=== PATIENT | male | born 1985 ===

== ENCOUNTER → 2023-04-13 09:51 | Outpatient (BNVA) | payer OTHER, SELFPAY | PROVIDERS: PCP Nurse Practitioner Family; Visit Provider Physician Assistant Surgical ==

== ENCOUNTER 2023-04-19 09:26 | Outpatient (AMB) | payer OTHER, SELFPAY ==
--- NOTE | 2023-04-19 09:29 | A.OFFVIS_ITS ---
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 His goal is wants to have more energy. He reports first being concerned about his weight many years. Tried SWL at [facility] 15 years ago - but stopped. His highest weight was 260 lbs. He has tried multiple methods of weight loss including other diets. without permanent results. He lives with his and his daughter. He is unemployed now. He wakes at: 8am bed at 8pm - on his phone until 10 - 11pm. 80 ounces of water per day Breakfast: 9am - 1 egg, 1 piece of toast with avocado and banana or apple or kiwi. water Lunch: 12:30 pm - skips 1-2 d/week. fast food 3d/week. tuna sandwich with tomatoes, fruit or baby carrots. water Dinner: 5pm - meat, rice and vegetable. After dinner: multiple snacks after dinner. 7pm - sweet pastries. Bowl of cereal or chips at 8:30 if awake or apple with PB or whipped cream and chocolate chips Other snacks: none Liquids: ocassional soda, no fruit juice or caffeine Alcohol intake: none, tobacco: none, marijuana: none Exercise: none, has treadmill and weights at home. JOSE:3 ESS:2 GERD: 0: QOL:66 PFSH Surgical History Hx of hysterectomy, total Hx of total mastectomy Family History Mother Hypertension Diabetes Depression Anxiety Social History (Updated 04/13/23 @ 10:04 by Dot Oro [facility]) Alcohol intake: never Patient Tobacco Use Status: Never used Tobacco Assessment & Plan Assessment & Plan (1) Obesity: Code(s): E66.9 - Obesity, unspecified Plan: This is a 37 yo transman with obesity who will start [facility] program. Blood work has been ordered. He will start SWL classes and watch all classes before his appt with Noemi. 1. Adequate sleep of 7-8 hours per night discussed 11 pm - 8am 2. Healthy meal plan - stop skipping meals All meals/MR's need to take 20 minutes to complete 9 - 10 am - protein shake with water or UAM 1 pm - 4oz protein, 8 oz vegetable and 1 fruit 5 pm- 6 oz lean protein, 8 oz vegetable, 1/2 cup carbs 7-8 pm - protien bar Exercise - Cardio 4 d week =goal 2,000 markie/wek. treadmill at speed 3.0, incline 2- 6 (3 minutes) - to burn 350 calories (10 markie/minute) Then start ST -3 d/ wk Pt will purchase body composition analyzer (recommended list given to patient) and weight herself weekly. Next appt with Noemi in 4 weeks. Text me with any questions and weekly weights. Patient is morbidly obese and is not considered stable at this time.?I spent a total of 60 minutes reviewing/updating records, examining the patient and counseling the patient on weight management as detailed above. (2) Hypothyroid: Code(s): E03.9 - Hypothyroidism, unspecified Plan see above Orders: Orders Complete Blood Count Auto Diff Today E03.9 - Hypothyroidism, unspecified, E66.9 - Obesity, unspecified Lipid Panel Today E03.9 - Hypothyroidism, unspecified, E66.9 - Obesity, unspecified IRON PROFILE Today E03.9 - Hypothyroidism, unspecified, E66.9 - Obesity, unspecified Comprehensive Met. Panel Today E03.9 - Hypothyroidism, unspecified, E66.9 - Obesity, unspecified C Reactive Protein Today E03.9 - Hypothyroidism, unspecified, E66.9 - Obesity, unspecified Vitamin B1 Today E03.9 - Hypothyroidism, unspecified, E66.9 - Obesity, unspecified Ferritin Today E03.9 - Hypothyroidism, unspecified, E66.9 - Obesity, unspecified Vitamin D 25-OH Total Today E03.9 - Hypothyroidism, unspecified, E66.9 - Obe sity, unspecified Insulin Today E03.9 - Hypothyroidism, unspecified, E66.9 - Obesity, unspecified Hemoglobin A1c Today E03.9 - Hypothyroidism, unspecified, E66.9 - Obesity, unspecified Vitamin B12 and Folate Today E03.9 - Hypothyroidism, unspecified, E66.9 - Obesity, unspecified Zinc Today E03.9 - Hypothyroidism, unspecified, E66.9 - Obesity, unspecified Vitamin A Today E03.9 - Hypothyroidism, unspecified, E66.9 - Obesity, unspecified TSH reflex Free T4 Today E03.9 - Hypothyroidism, unspecified, E66.9 - Obesity, unspecified Coding Level of Care Code New Pt Level 5 (33269) Diagnoses Obesity E66.9 Hypothyroid E03.9
[2023-04-19 09:34] VITALS: BP 121/67; PULSE 96; TEMP 36.1; O2SAT 100; BMI 36.4
== END 2023-04-19 10:15 | disposition home or self-care (01) ==
PROVIDERS: PCP Nurse Practitioner Family; Visit Provider Physician Assistant
DX: E66.9 Obesity, unspecified (principal); Z68.36 Body mass index [BMI] 36.0-36.9, adult; E03.9 Hypothyroidism, unspecified
CPT/HCPCS: 99205

== ENCOUNTER → 2023-04-19 09:26 | Outpatient (BNVA) | payer OTHER, SELFPAY | PROVIDERS: PCP Nurse Practitioner Family; Visit Provider Physician Assistant | DX: E66.9 Obesity, unspecified (principal); E03.9 Hypothyroidism, unspecified; Z68.36 Body mass index [BMI] 36.0-36.9, adult | CPT/HCPCS: 99202 ==

== ENCOUNTER 2023-04-20 09:16 | Outpatient (REF) | payer OTHER, SELFPAY ==
[2023-04-20 09:40] LABS: MANUAL DIFF FLAG NO
[2023-04-20 10:43] LABS: Basophils Percent Auto 0.5 % (0-2); Eosinophils Absolute Auto 0.1 X10*3/uL (0.0-0.4); Eosinophils Percent Auto 1.7 % (0-4); Hematocrit 47.5 % (42.0-52.0); Hemoglobin 16.6 g/dl (14.0-18.0); Imm Gran Abs Auto 0.02 X10*3/uL (0.00-0.03); Imm Gran Pct Auto 0.3 % (0.0-0.4); Mean Corpuscular HGB Conc 34.9 g/dl (31.0-36.0); Mean Corpuscular Hemoglobin 29.7 pg (27.0-33.0); Mean Corpuscular Volume 85.1 fL (80.0-98.0); Mean Platelet Volume 10.5 fL (9.4-12.4); Monocytes Absolute Auto 0.5 X10*3/uL (0.1-1.2); Monocytes Percent Auto 8.1 % (2-11); Neutrophils Absolute Auto 3.2 x10*3/uL (2.0-8.3); Neutrophils Percent Auto 55.4 % (45-73); Platelet Count 226 X10*3/uL (160-400); Red Blood Count 5.58 X10*6/uL (4.60-5.80); Red Cell Distribution Width 12.6 % (11.0-16.0); White Blood Count 5.8 X10*3/uL (4.8-10.8)
[2023-04-20 11:20] LABS: Estimated Average Glucose 105 mg/dL; Hemoglobin A1c % 5.3 % (<6.0)
[2023-04-20 11:21] LABS: Alanine Aminotransferase 28 U/L (0-40); Albumin Level 4.5 g/dL (3.5-5.0); Alkaline Phosphatase 38 U/L (39-117); Anion Gap 14 (12-20); Aspartate Amino Transferase 19 U/L (5-37); Bilirubin Total 0.7 mg/dL (0.0-1.0); Blood Urea Nitrogen 14 mg/dL (9-16); C Reactive Protein 0.12 mg/dL (< or = 0.50); Calcium 9.8 mg/dL (8.4-10.2); Carbon Dioxide 26 mmol/L (22-29); Chloride 104 mmol/L (96-108); Cholesterol 167 mg/dL (<200); Estimated Glomerular Filt Rate > 60; Glucose Random 98 mg/dL (60-115); HDL Cholesterol 35 mg/dL (>40); Iron 103 mcg/dL (45-160); LDL Cholesterol Calculated 101 mg/dL (<100); Percent Iron Saturation 33 % (15-50); Potassium 4.2 mmol/L (3.3-5.1); Sodium 140 mmol/L (135-145); Total Iron Binding Capacity 314 mcg/dL (228-428); Total Protein 7.9 g/dL (6.5-8.0); Triglycerides 157 mg/dL (<150); Unsaturated Iron Binding 211 ug/dL
[2023-04-20 11:39] LABS: Ferritin 62 ng/mL (20-250); Insulin 11 uU/mL (2-29); TSH reflex Free T4 0.46 uIU/mL (0.32-4.0); Vitamin D 25-OH Total 26.7 ng/mL (>30)
[2023-04-20 11:45] LABS: Folate 9.2 ng/mL (> or = 4.0); Vitamin B12 190 pg/mL (200-900)
[2023-04-24 01:18] LABS: Zinc 83 mcg/dL (60-130)
[2023-04-25 09:38] LABS: Vitamin A 67 mcg/dL (38-98)
[2023-04-26 14:43] LABS: Vitamin B1 10 nmol/L (8-30)
== END 2023-04-20 09:17 | disposition home or self-care (01) ==
LOC: HO.LAB 09:16
PROVIDERS: Visit Provider Physician Assistant
DX: E66.9 Obesity, unspecified (principal); E03.9 Hypothyroidism, unspecified
CPT/HCPCS: 36415; 80053; 80061; 82306; 82607; 82728; 82746; 83036; 83525; 83540; 84425; 84443; 84590; 84630; 85025; 86140

== ENCOUNTER 2023-05-17 09:48 | Outpatient (AMB) | payer OTHER, SELFPAY ==
--- NOTE | 2023-05-17 09:56 | MHC.AMNUTRGE ---
Intake VS Expanded 05/17/23 10:33 Height 5 ft 3.5 in Weight 208 lb BMI 36.3 Intake Visit Reasons: (OV) Initial Nutrition [facility] Sagger Soak Required: No Allergies No Known Allergies Allergy (Verified 04/19/23 09:36) HPI Nutrition Presentation Details [facility] - Starting weight 208 pt states no weight loss, he understands why and knows downfalls. Reason for consult elevated BMI Diet Assmnt Details shake Ensure max in the AM - likes lunch 4oz protein, 8oz veg - has a food scale dinner 6oz protein, veg protein bar - skips because dislikes the bars Reports issues now are going out to eat more lately such as [employer], [employer]. Is seeking ideas for variety. interested in cutting back on meat intake, while maintaining high protein. Likes to have a routine . feels he doesn't know what to eat, they told me what not to eat but needs guidance understanding whys and to to have more variety Dietary counseling reduction Who buys your food self and spouse Who prepares/cooks your food self and spouse Meal frequency regular: lunch and never: breakfast Lifestyle Eating out 1-3 times/week Diagnosis Nutrition problem #1 overweight/obesity As related to (etiology) #1 excess energy intake and physical inactivity As evidenced by (sign/symptom) #1 high BMI Monitoring/Goals Nutrition problem monitoring total energy intake, level of knowledge/skill, total PRO intake, total CHO intake and weight Outcome progress progressing Learning/Education Readiness to learn excellent Stages of change action Educational materials provided Yes Most Recent Diabetes Results: Cholesterol 167 mg/dL (<200) 04/20/23 HDL Cholesterol 35 mg/dL (>40) L 04/20/23 Triglycerides 157 mg/dL (<150) H 04/20/23 Creatinine 0.98 mg/dL (0.5-1.4) 04/20/23 Blood Urea Nitrogen 14 mg/dL (9-16) 04/20/23 Sodium 140 mmol/L (135-145) 04/20/23 Potassium 4.2 mmol/L (3.3-5.1) 04/20/23 Chloride 104 mmol/L (96-108) 04/20/23 Carbon Dioxide 26 mmol/L (22-29) 04/20/23 Calcium 9.8 mg/dL (8.4-10.2) 04/20/23 AST 19 U/L (5-37) 04/20/23 ALT 28 U/L (0-40) 04/20/23 Total Protein 7.9 g/dL (6.5-8.0) 04/20/23 Albumin 4.5 g/dL (3.5-5.0) 04/20/23 PFSH Surgical History Hx of hysterectomy, total Hx of total mastectomy Family History Mother Hypertension Diabetes Depression Anxiety Social History (Updated 04/13/23 @ 10:[address] [facility]) Alcohol intake: never Patient Tobacco Use Status: Never used Tobacco Assessment & Plan Assessment & Plan (1) Obesity (BMI 30-39.9): Code(s): E66.9 - Obesity, unspecified Plan see below Patient Instructions: Recommended food themes for the week to increase variety but also maintain the regimen he enjoys (ex cymraes salad one week, southwest salad another week). Talked about how to meet protein goals with meatless meals. Gave recommendations for high fiber breads, and educated on balancing plate/meals/snacks with fiber from plants plus protein and carbs. Will f/u with PA in 1 month Coding Level of Care Code Nutr Indiv Intake (58920) Diagnoses Obesity (BMI 30-39.9) E66.9 Time Spent (min) 45
[2023-05-17 10:33] VITALS: BMI 36.3
== END 2023-05-17 10:53 | disposition home or self-care (01) ==
PROVIDERS: PCP Nurse Practitioner Family; Visit Provider Dietitian, Registered
DX: E66.9 Obesity, unspecified (principal)

== ENCOUNTER → 2023-05-17 09:48 | Outpatient (BNVA) | payer OTHER, SELFPAY | PROVIDERS: PCP Nurse Practitioner Family; Visit Provider Dietitian, Registered | DX: E66.9 Obesity, unspecified (principal); Z68.36 Body mass index [BMI] 36.0-36.9, adult; Z71.3 Dietary counseling and surveillance | CPT/HCPCS: 97802 ==

== ENCOUNTER 2023-06-05 14:38 | Outpatient (AMB) | payer OTHER, SELFPAY ==
--- NOTE | 2023-06-05 14:43 | MHC.OFFVIS ---
Intake Vital Signs 06/05/23 14:45 Height 5 ft 3.5 in Weight 211 lb 3.245 oz BMI 36.8 BP 122/74 Blood Pressure Location Rt brachial Position Sitting Pulse 98 Pulse Source Pulse Oximeter Pulse Oximetry (%) 98 Oxygen Delivery Method Room Air Intake Visit Reasons: + JASMIN Intake Note: New pt presents today for +JASMIN consult, referred by pcp Noemy Levy. C/o back pain for many years; states he is always in pain. Since November neck pain, eye pain, constant headache.Went to [facility] ED was told had MONO At the hospital he received Tramadol and steroid; reports eye pain has subsided, but still feels pressure. Saw eye doctor done testing has not heard results. Recently started on duloxetine 20mg 5 days ago. 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 States that he has always been in generalized pain. States that he has history of kidney stones and he had ureteric stents placed in the past. Since then he has been having left-sided pain. The pain is in the left upper back, left flank and left lower extremity. More recently the pain in his neck and headaches has been more severe. He went to the emergency room and was told that he had infectious mononucleosis and was prescribed steroids with some improvement. He denies any rashes. He has lost weight through bariatric surgery but has not had any unintentional weight loss. Denies any fevers. Denies any skin rashes. Denies any history of DVT/PE. He is unaware of any family history of an autoimmune rheumatic disease. Denies any froth in the urine. Denies any mouth sores. Recently started on duloxetine 20 mg daily 5 days ago by his psychiatrist [facility] Surgical History Hx of hysterectomy, total Hx of total mastectomy Family History Mother Hypertension Diabetes Depression Anxiety Social History Alcohol intake: never Patient Tobacco Use Status: Never used Tobacco Current occupational status: unemployed Review of Systems Const Reports fatigue and Denies fever(s) Eyes Reports dry eyes, Reports itchy eyes and Reports eye pain ENT Reports dysphagia, Reports dry mouth, Reports neck pain and Reports tinnitus GI Reports dysphagia Musc Reports back pain, Reports arthralgias and Reports neck pain Psych Reports anxiety Endo Reports fatigue Aller/Immun Reports itchy eyes Physical Exam Vital Signs: Last Vital Signs Pulse 98 06/05/23 14:45 BP 122/74 06/05/23 14:45 Pulse Ox 98 06/05/23 14:45 Oxygen Delivery Method Room Air 06/05/23 14:45 BMI result Body Mass Index 36.8 Const General: cooperative, healthy appearing and comfortable Nutritional Appearance: obese morbidly obese Orientation/consciousness: patient oriented x3 Limitations: no limitations HEENT Head: Yes normocephalic and Yes atraumatic Mouth: moist mucous membranes Resp Effort & Inspection: normal respiratory effort and able to speak in complete sentences Auscultation: clear to auscultation bilaterally Cardio Rate: regular rate Rhythm: regular rhythm Skin General skin exam: no rashes or lesions noted Neuro General: patient oriented x3 Extrem Other: No active synovitis Assessment & Plan Assessment & Plan (1) Positive JASMIN (antinuclear antibody): Code(s): R76.8 - Other specified abnormal immunological findings in serum Plan: This is a 37-year-old male who presents for evaluation of positive JASMIN. I do not see any signs suggestive of an autoimmune rheumatic disease. Significance of his positive JASMIN is unclear. Discussed symptoms and signs that are suggestive of an autoimmune rheumatic disease. Patient to follow-up as needed. Was recently started on duloxetine by his psychiatrist. Consider neurology evaluation if headaches do not improve. Plan I spent 25 minutes reviewing patient's chart, evaluating patient, counseling patient and documenting in the chart Coding Level of Care Code New Pt Level 3 (06105) Diagnoses Positive JASMIN (antinuclear antibody) R76.8
[2023-06-05 14:45] VITALS: BP 122/74; PULSE 98; O2SAT 98; BMI 36.8
== END 2023-06-05 15:27 | disposition home or self-care (01) ==
PROVIDERS: PCP Nurse Practitioner Family; Visit Provider Student in an Organized Health Care Education/Training Program
DX: R76.8 Other specified abnormal immunological findings in serum (principal)
CPT/HCPCS: 99203

== ENCOUNTER → 2023-06-05 14:38 | Outpatient (BNVA) | payer OTHER, SELFPAY | PROVIDERS: PCP Nurse Practitioner Family; Visit Provider Student in an Organized Health Care Education/Training Program | DX: R76.8 Other specified abnormal immunological findings in serum (principal) | CPT/HCPCS: 99202 ==

== ENCOUNTER 2023-06-18 11:05 | Outpatient (AMB) | payer OTHER, SELFPAY ==
--- NOTE | 2023-06-18 11:06 | A.OFFVIS_ITS ---
VS Expanded 06/18/23 11:17 BP 134/79 Blood Pressure Location Rt brachial Blood Pressure Position Sitting Pulse 88 Pulse Source Pulse Oximeter Temp 97.5 F Temperature Source Tympanic Pulse Oximetry 95 Oxygen Delivery Method Room Air Height 5 ft 3.5 in Weight 206 lb 3.2 oz BMI 35.9 Body Fat % 31.2 Body Fat Mass 64.4 Fat Free Mass 141.8 Visceral Fat Rating 15.0 Body Water % 51.4 Body Water Mass 106.0 Muscle Mass/Score 134.8 Basal Metabolic Rate/Score 1,921 Intake Visit Reasons: (OV) F/U [facility] (Transfer Neha) Allergies No Known Allergies Allergy (Verified 06/18/23 11:19) HPI Comments Details: Patient is a pleasant 37-year-old male who returns to the office today in follow-up. He was 1st seen in our medical weight loss clinic on 04/19/2023 by my colleague, Neha, at that time, his weight was 208.6 lb with a BMI of 36.4. Weight today is 206.2 lb with a BMI of 36. This corresponds to a 2.4 lb weight loss. He states that since his last visit, his treadmill stopped working and he has not been able to use it as much. Meal plan: 9 am Ensure RTD shake 30 gm noon meal 4 oz protein, 8 oz veg, fruit 5pm meal 6 oz protein, 1/2 c carbs, 8 oz veg 730 pm supposed to have fruit but would have bowel of cheerios, fruity javier w 2 % milk Drinking 80 oz water Exercise: walk outside not tracking calories. PFSH Surgical History Hx of hysterectomy, total Hx of total mastectomy Family History Mother Hypertension Diabetes Depression Anxiety Social History Alcohol intake: never Patient Tobacco Use Status: Never used Tobacco Current occupational status: unemployed Physical Exam Vital Signs: Last Vital Signs Temp 97.5 F 06/18/23 11:17 Pulse 88 06/18/23 11:17 BP 134/79 06/18/23 11:17 Pulse Ox 95 06/18/23 11:17 Oxygen Delivery Method Room Air 04/29/24 11:17 BMI result Body Mass Index 35.9 Assessment & Plan Assessment & Plan (1) Obesity: Code(s): E66.9 - Obesity, unspecified Category: Medical Plan: Change meal plan: 9-11 am 1/2 ensure max w 6 oz almond milk 12-2 another shake 3 pm fruit 5pm meal 8 forks protein and 8 forks veg 7 pm protein bar Given discount paperwork for [employer]. Encouraged to join there or [employer]. Encouraged to track calories with [employer] if he is walking outside. Goal is burning 300 calories per day or 2000 calories per week. Return to clinic 1 month.
[2023-06-18 11:17] VITALS: BP 134/79; PULSE 88; TEMP 36.4; O2SAT 95; BMI 35.9
== END 2023-06-18 11:57 | disposition home or self-care (01) ==
PROVIDERS: PCP Nurse Practitioner Family; Visit Provider Physician Assistant Surgical
DX: E66.9 Obesity, unspecified (principal); Z68.35 Body mass index [BMI] 35.0-35.9, adult
CPT/HCPCS: 99213

== ENCOUNTER → 2023-06-18 11:05 | Outpatient (BNVA) | payer OTHER, SELFPAY | PROVIDERS: PCP Nurse Practitioner Family; Visit Provider Physician Assistant Surgical | DX: E66.9 Obesity, unspecified (principal); Z68.35 Body mass index [BMI] 35.0-35.9, adult | CPT/HCPCS: 99212 ==

== ENCOUNTER 2023-08-31 09:50 | Outpatient (AMB) | payer OTHER, SELFPAY ==
--- NOTE | 2023-08-31 09:41 | A.OFFVIS_ITS ---
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 He was 1st seen in our medical weight loss clinic on 04/19/2023 by my colleague, Neha, at that time, his weight was 208.6 lb with a BMI of 36.4. Weight today is 209.4 lb with a BMI of 36. This corresponds to a 0.8 lb weight gain. He states that since his last visit, his treadmill stopped working and he has not been able to use it as much. He c/o pain in side and looking into spleen given recent mono dx. Stopped meal plan on own and started eating more hot dogs and hamburgers. Meal plan: 9-11 am 1/2 ensure max w 6 oz almond milk 12-2 another shake 3 pm fruit 5pm meal 8 forks protein and 8 forks veg 7 pm protein bar Drinking 80 oz water Exercise: walk outside not tracking calories. PFSH Surgical History Hx of hysterectomy, total Hx of total mastectomy Family History Mother Hypertension Diabetes Depression Anxiety Social History Alcohol intake: never Patient Tobacco Use Status: Never used Tobacco Current occupational status: unemployed Telehealth Telehealth Telehealth Platform: Telephone Location of provider rendering services: practice address Location of patient: address on file Patient Identification confirmed using: Name, : Yes Telehealth method: voice only Patient verbally consented to treatment: Yes Patient verbally consented to billing insurance company: Yes Patient informed of any privacy concerns related to visit: Yes Minutes spent on Phone/Video with Pt.: 12 Assessment & Plan Assessment & Plan (1) Obesity: Code(s): E66.9 - Obesity, unspecified Category: Medical Plan: Patient has had difficulty maintaining the meal plan. He has had multiple di etary indiscretions and subsequent abdominal discomfort. He is pursuing whether there is any intolerance with GI. Additionally being tested for any stone and this is being done through urology. While he has not lost significant amount of weight, he has learned many things about proper and balanced meals and diet. Encouraged to join the [employer] and increase exercise, counting calories as we have discussed many times. He certainly may return to the office in the future if he wishes.
[2023-08-31 09:43] VITALS: BMI 36.5
== END 2023-08-31 09:55 | disposition home or self-care (01) ==
LOC: HO.HBS 09:50
PROVIDERS: PCP Nurse Practitioner Family; Visit Provider Physician Assistant Surgical
DX: E66.9 Obesity, unspecified (principal); Z68.36 Body mass index [BMI] 36.0-36.9, adult
CPT/HCPCS: 99213

== ENCOUNTER → 2023-08-31 09:50 | Outpatient (BNVA) | payer OTHER, SELFPAY | PROVIDERS: PCP Nurse Practitioner Family; Visit Provider Physician Assistant Surgical ==

== ENCOUNTER 2025-01-23 09:10 | Outpatient (AMB) | payer OTHER, SELFPAY ==
--- NOTE | 2025-01-23 09:21 | A.OFFVIS_ITS ---
Vital Signs 01/23/25 09:32 Height 5 ft 3.5 in Weight 229 lb 4.492 oz BMI 40.0 BP 132/74 Blood Pressure Location Lt brachial Position Sitting Pulse 91 Pulse Source Pulse Oximeter Pulse Oximetry (%) 98 Oxygen Delivery Method Room Air Intake Visit Reasons: JASMIN+ Intake Note: Patient presents today for JASMIN+ follow up. Patient c/o of constant joint pain all over. 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 Hightower - New patient visit for the evaluation of a positive JASMIN - States that he has always been in generalized pain. States that he has history of kidney stones and he had ureteric stents placed in the past. Since then he has been having left-sided pain. The pain is in the left upper back, left flank and left lower extremity. More recently the pain in his neck and headaches has been more severe. He went to the emergency room and was told that he had infectious mononucleosis and was prescribed steroids with some improvement. He denies any rashes. He has lost weight through bariatric surgery but has not had any unintentional weight loss. Denies any fevers. Denies any skin rashes. Denies any history of DVT/PE. He is unaware of any family history of an autoimmune rheumatic disease. Denies any froth in the urine. Denies any mouth sores. Recently started on duloxetine 20 mg daily 5 days ago by his psychiatrist - No evidence of autoimmune disease Today - Presenting for evaluation of worsening and spreading chronic pain. - He was seen in this clinic about two years ago for full-body pain and a positive JASMIN, at which time an autoimmune etiology was not identified. - The pain initially started around [id number], primarily in the lower back, and has since spread. - He has known diagnoses of degenerative disc disease in his back and cervical spinal stenosis. - Current pain involves the neck, bilateral shoulders, lower back, left hip, and right knee. - The right knee pain began aching and then worsened after missing a step around Halloween. - He reports that laying down in a position or sitting leaned forward helps alleviate his back and hip pain. - He has tried a cervical spine pillow, which has been slightly helpful for his neck pain. - He reports increased calf cramping during walks. - Other medical history includes Alina's thyroiditis diagnosed around age 16 or 17, hypothyroidism, history of kidney stones requiring a stent placement (since removed) around 2018, and a cholecystectomy. - He is transgender and receives testosterone injections. - He is overweight and reports a recent 29-pound weight gain despite attempts to walk more. - He has a history of folate, B12, and D3 deficiencies, but does not currently take a multivitamin. - The patient is pursuing weight management, with an appointment in February to discuss weight loss injections and plans to see a dietitian. - Family history is significant for his mother who had prediabetes, hypertensio n, COPD, and early-onset Alzheimer's, and also had a chronic stooped posture attributed to back pain or her lung disease. - His brother also suffers from back pain that started around age 30. Rheumatologic History: Initial history: This is a 37-year-old male who presents for evaluation of a positive JASMIN. States that he has always been in generalized pain. States that he has history of kidney stones and he had ureteric stents placed in the past. Since then he has been having left-sided pain. The pain is in the left upper back, left flank and left lower extremity. More recently the pain in his neck and headaches has been more severe. He went to the emergency room and was told that he had infectious mononucleosis and was prescribed steroids with some improvement. He denies any rashes. He has lost weight through bariatric surgery but has not had any unintentional weight loss. Denies any fevers. Denies any skin rashes. Denies any history of DVT/PE. He is unaware of any family history of an autoimmune rheumatic disease. Denies any froth in the urine. Denies any mouth sores. Recently started on duloxetine 20 mg daily 5 days ago by his p sychiatrist Current Rheumatology Medication(s): [facility] Surgical History Hx of hysterectomy, total Hx of total mastectomy Family History (Updated 01/23/25 @ 09:32 by TRUDI Edmondson) Mother Hypertension Diabetes Depression Anxiety Brother Diabetes Social History Alcohol intake: never Patient Tobacco Use Status: Never used Tobacco Current occupational status: unemployed Review of Systems Narrative Review of Systems - Constitutional: Reports being 'tired of being in pain' and recent weight gain. - Musculoskeletal: Reports chronic, progressive, and widespread pain in his neck, back, joints, and now his leg. - Specifically reports pain in the right knee, left hip, and left elbow. - Reports cramping in his calves when he walks. - Skin: Denies patchy hair loss or photosensitive rash. - HEENT: Denies ulcers in the nose or mouth. All other systems reviewed and are unremarkable except noted above Physical Exam Exam Exam: Vital signs reviewed Physical Examination CONSTITUITIONAL Patient alert and cooperative. Well appearing and in no apparent painful distress MSK Hands * Right Hand: Able to make a fist. No swelling or tenderness to palpation of the MCPs, PIPs or DIPs. * Left Hand: Able to make a fist. No swelling or tenderness to palpation of the MCPs, PIPs or DIPs. Wrists * Right Wrist: Full ROM to flexion and extension. No swelling or TTP * Left Wrist: Full ROM to flexion and extension. No swelling or TTP Elbows * Right Elbow: Full ROM. No swelling or TTP. No TTP of the medial epicondyle. No TTP of the lateral epicondyle * Left Elbow: Full ROM. No swelling or TTP. No TTP of the medial epicondyle. No TTP of the lateral epicondyle Shoulders * Right shoulder: Full ROM. No swelling noted. No TTP of the AC joint. No TTP of the subacromial bursa. No TTP of the posterior shoulder * Left shoulder: Full ROM. No swelling noted. No TTP of the AC joint. No TTP of the subacromial bursa. No TTP of the posterior shoulder Knees * Right knee: Full ROM. No swelling noted. No TTP of the knee joint line. No TTP of pes anserine bursa * Left knee: Full ROM. No swelling noted. No TTP of the knee joint line. No TTP of pes anserine bursa. * Crepitations felt bilaterally Ankles * Right ankle: Good ankle dorsiflexion and plantar flexion. No swelling. No TTP of the ankle joint * Left ankle: Good ankle dorsiflexion and plantar flexion. No swelling. No TTP of the ankle joint Feet * Right foot: Negative squeeze test * Left foot: Negative squeeze test Tender points? * No tenderness to palpation of the bilateral trapezius, supraspinatus, anterior costochondral junctions, bilateral suboccipital muscle insertions SKIN No rashes Vital Signs: Last Vital Signs Pulse 91 01/23/25 09:32 BP 132/74 01/23/25 09:32 Pulse Ox 98 01/23/25 09:32 Oxygen Delivery Method Room Air 01/23/25 09:32 BMI result Body Mass Index 40.0 Results Reviewed Results Reviewed: MR L spine w/o contrast 03/2024 Findings: Numbering: There is transitional lumbosacral anatomy. For the purposes of this report, S1 is lumbarized. Alignment, vertebrae, marrow and discs: There is new minimal grade 1 anterolisthesis of L4 on L5 and there is unchanged mild retrolisthesis of L5 on S1. Alignment is otherwise maintained. Vertebral body heights are preserved. There is disc desiccation and loss of intervertebral height at L3-L4 through L5- S1 increased from prior. Rudimentary disc at S1-S2. Intervertebral discs are otherwise maintained Conus: The conus is normal in signal and contour, with normal level of termination at L1 - L2 Paraspinal tissues: The paraspinal soft tissues are unremarkable L1-L2: Facet arthropathy, right greater than left. No significant canal stenosis or neural foraminal narrowing L2-L3: No significant canal stenosis or neural foraminal narrowing L3-L4: Diffuse disc bulge and facet arthropathy. Minimal spinal canal narrowing. Mild bilateral neural foraminal narrowing. Findings are new L4-L5: Diffuse disc bulge, ligamentum flavum thickening and facet arthropathy. There is no significant canal stenosis. There is again moderate bilateral neural foraminal narrowing with crowding of the exiting L4 nerve roots similar t o prior L5-S1: Disc bulge with small central protrusion component. Facet arthropathy. No significant canal stenosis. There is again mild left and minimal right neural foraminal narrowing Impression: Degenerative changes of the lumbar spine as detailed above which have progressed since the previous exam, but no evidence of new nerve root impingement MR C spine w/o contrast 08/2024 Findings: Alignment, vertebrae. marrow and discs: There is reversal of the typical cervical lordosis. Mild retrolisthesis of C5 on C6 and C6 on C7 is noted. Vertebral body heights are preserved. There is no significant marrow signal abnormality. Intervertebral discs are maintained Posterior fossa and cord: Visualized posterior fossa is normal. The cervical cord is normal in signal throughout. There is mild cord compression at C5-C6 with indentation of the ventral cord contour and effacement of surrounding CSF space. There is also slight indentation of the left ventral cord contour at C6- 7 Paraspinal tissues: Soft tissues of the neck are unremarkable. Major cervical flow voids are present C2-C3: No significant disc herniation, central stenosis or neural foraminal narrowing C3-C4: Tiny central protrusion. Asymmetric left-sided and unconvertebral spurring. Minimal central stenosis. Moderate to severe left and no right neural foraminal narrowing C4-C5: Tiny central protrusion. Bilateral uncovertebral spurring. Mild central stenosis. [id number] bilateral neural foraminal narrowing. C5-C6: Broad-based disc osteophyte complex with superimposed central/left paracentral disc extrusion. Moderate to severe central stenosis with mild cord compression, though no cord signal abnormality. Moderate right and mild left neural foraminal narrowing C6-C7: Broad-based disc osteophyte complex with left paracentral protrusion. Moderate central stenosis, eccentric to the left with indentation of the left ventral cord. Severe left and minimal right neural Foraminal narrowing C7-T1: Mild facet spurring. Minimal broad-based disc bulge. No significant central stenosis or neural foraminal narrowing Impression: Multilevel degenerative changes of the cervical spine as above. Most prominently there is moderate to severe central stenosis at C5-6 with mild cord compression though no cord signal abnormality. There is also slight inden tation of the left ventral cord at C6-7 where there is moderate central stenosis. Neural foraminal narrowing is greatest on the left at C6-7 (severe). Assessment & Plan Assessment & Plan (1) Osteoarthritis: Code(s): M19.90 - Unspecified osteoarthritis, unspecified site Qualifiers: Osteoarthritis location: multiple joints Osteoarthritis type: primary Qualified Code(s): M15.0 - Primary generalized (osteo)arthritis Plan: #Polyarticular OA Patient is a 39-year-old transgender male on testosterone supplements with a history of Alina's thyroiditis on levothyroxine here today for re-evaluation of joint pain. The patient's chronic and progressive widespread pain is attributed to multilevel degenerative osteoarthritis of the cervical and lumbar spine, as evidenced by extensive MRI findings. There is no current evidence to suggest an underlying systemic autoimmune condition is causing the pain. The condition is progressive, and it was explained that medical science cannot currently halt its progression, but symptoms can be managed. Treatment will focus on managing symptoms and improving biomechanics. It is recommended the patient engage in ady-ozqlvj-fvoafsn exercises such as swimming or using a stationary bike to strengthen surrounding muscles without stressing the joints. Walking can exacerbate lower back and knee pain and should be done with caution. A daily multivitamin containing magnesium, calcium, and Vitamin D is recommended to address potential deficiencies and muscle cramping. The patient was informed that joint replacement surgery may be a consideration in the future . Plan - Low impact exercises - Encouraged weight loss (2) Positive JASMIN (antinuclear antibody): Code(s): R76.8 - Other specified abnormal immunological findings in serum Category: Medical Plan: #Positive JASMIN The patient's positive JASMIN is believed to be related to his history of Alina's thyroiditis. In the absence of clinical signs of a systemic autoimmune disease such as lupus (e.g., specific rashes, oral ulcers, inflammatory arthritis), the finding is of unknown significance and is not considered pathologic. It was explained that having an JASMIN reflects a genetic tendency for slower clearance of cellular waste by the immune system and does not equate to an autoimmune disease diagnosis, although it may increase future risk. No treatment is required for the JASMIN itself. Plan I had a detailed discussion with the patient regarding his chronic, widespread pain. I explained that based on his reported history, my examination, and a review of his extensive cervical and lumbar MRI results, the primary cause of his pain is multilevel degenerative osteoarthritis. I clarified that this is a progressive condition related to 'wear and tear' that is likely accelerated by a genetic predisposition, suggested by his family history, and that while we cannot stop its progression, we can manage the symptoms. I also addressed his concerns about the positive JASMIN, explaining that it is most likely related to his history of Alina's thyroiditis and does not indicate a condition like lupus in the absence of other specific clinical findings. We discussed management strategies focusing on non-pharmacological approaches as he prefers. I recommended bwb-aqpost-aqbqeuq exercises, specifically swimming and using a stationary bike, to strengthen the musculature around his joints without causing further stress. I also advised him to start a daily multivitamin to address potential deficiencies that could cause cramping. I supported his ongoing efforts toward weight loss, as this will reduce the load on his joints. I informed him that this condition is not life-threatening but will progress, and that he may require joint replacement surgery in the future. The patient appeared to understand the diagnosis and plan and had no further questions. I spent 45 minutes reviewing the record and labs, taking a history, examining the patient, discussing the treatment plan, explaining the exam findings, answering questions and documenting in the medical record Coding Level of Care Code Est Pt Level 5 (51252) Diagnoses Primary osteoarthritis involving multiple joints M15.0 Osteoarthritis location: multiple joints Osteoarthritis type: primary Positive JASMIN (antinuclear antibody) R76.8
[2025-01-23 09:32] VITALS: BP 132/74; PULSE 91; O2SAT 98; BMI 40.0
--- OUTSIDE RECORDS SUMMARY | 2025-01-23 09:48 | XMS_ITS | Clinical Summary ---
Author Organization [facility] Address [address] [place] [address] Phone Care Team Providers Care Jig Borer Name Role Phone Noemy Levy NP Primary Care Provider [phone] Allergies No known active allergies Active Problems No known active problems Surgical History Surgery Date Site/Laterality Comments HYSTERECTOMY Medical History Medical History Date Comments Kidney stones Social History Tobacco Use Types Packs/Day Years Used Date Smoking Tobacco: Never Smokeless Tobacco: Never Tobacco Cessation:Counseling Given: Not Answered Alcohol Use Standard Drinks/Week Comments Not Currently 0 (1 standard drink = 0.6 oz pur e alcohol) Sex and Gender Information Value Date Recorded Sex Assigned at Not on file Legal Sex Male 6:15 AM EST Gender Identity Not on file Sexual Orientation Not on file Obstetrics History Last Filed Vital Signs Vital Sign Reading Time Taken Comments Blood Pressure 111/71 01/17/2024 6:32 PM EST Pulse 89 01/17/2024 6:32 PM EST Temperature 36.7 C (98.1 F) 01/17/2024 6:32 PM EST Respiratory Rate 17 01/17/2024 6:32 PM EST Oxygen Saturation 98% 01/17/2024 6:32 PM EST Inhaled Oxygen Concentration - - Weight 99.8 kg (220 lb) 01/17/2024 2:26 PM EST Height 170.2 cm (5' 7 ) 01/17/2024 2:26 PM EST Body Mass Index 34.46 01/17/2024 2:26 PM EST Plan of Treatment Health Maintenance Due Date Last Done Comments Hepatitis B Vaccines (2 of 3 - Hep B Twinrix 3-dose series) 02/20/2006 01/23/2006 HPV Vaccines (1 - 3-dose SCDM series) 2012 Cholesterol Screening (Lipid Panel) 01/22/2022 HIV Screening 01/22/2022 Hepatitis C Screening 01/22/2022 Social Influencers of Health Screening 01/22/2022 Depression Screening 02/20/2024 COVID-19 Vaccine ( - season) 2024 Influenza Vaccine (#1) 2024 0, 03/02/2015, 12/23/2012, Additional history exists DTaP,Tdap,and Td Vaccines (2 - Td or Tdap) 05/29/2028 05/29/2018 RSV Immunization Adult Patients (1 - 1-dose 75+ series) 2060 Hepatitis A Vaccines Aged Out 01/23/2006 No long er eligible based on patient's age to complete this topic HIB Vaccines Aged Out No longer eligi ble based on patient's age to complete this topic IPV Vaccines Aged Out No longer eligi ble based on patient's age to complete this topic MMR Vaccines Aged Out No longer eligi ble based on patient's age to complete this topic Meningococcal ACWY Vaccine Aged Out N o longer eligible based on patient's age to complete this topic Meningococcal B Vaccine Aged Out No l onger eligible based on patient's age to complete this topic Pneumococcal Vaccine: Pediatrics (0 to 5 Years) and At-Risk Patients (6 to 49 Years) Aged Out No longer eligible based on patient's age to complete this topic RSV Immunization Patients Under 20 months Aged Out No longer eligible based on patient's age to complete this topic Varicella Vaccines Aged Out No longer eligible based on patient's age to complete this topic Insurance MEDICAID ADVANTAGE Care Teams Jig Borer Relationship Specialty Start Date End Date Noemy Levy, AGUSTIN [address] [place] [id number] PCP - General Nurse Practitioner 01/17/24
--- OUTSIDE RECORDS SUMMARY | 2025-01-23 09:48 | XMS_ITS | Clinical Summary ---
Author Organization [facility] Address [address] [place] [id number] Phone Care Team Providers Care Corrugator Operator Helper Name Role Phone Noemy Levy NP Primary Care Provider + Titi Perez MD Unavailable [phone] Allergies No known active allergies Medications SYNTHROID 150 mcg tablet Take 150 mcg by mouth daily. 06/30/2019 Active testosterone cypionate (DEPO-TESTOTERON E) 200 mg/mL injection Inject 0.5 mL into the muscle once a week. 05/05/2019 Active Active Problems Problem Noted Date Diagnosed Date Generalized anxiety disorder 08/09/2019 Social History Tobacco Use Types Packs/Day Years Used Date Smoking Tobacco: Never Smokeless Tobacco: Never Education Answer Date Recorded Are you interested in more education? Not on neftali e 06/16/2022 Are you concerned about learning? Not on file 06/16/2022 No 06/16/2022 No 06/16/2022 Digital Access Answer Date Recorded No 07/18/2022 No 07/18/2022 No 07/18/2022 Reliable internet access at home? Not on file 07/18/2022 Device with a working camera? Not on file Comments Unknown Sex and Gender Information Value Date Recorded Sex Assigned at Female 11/11/2018 12:00 PM EDT Legal Sex Male 11:52 AM EDT Gender Identity Male 11/11/2018 12:00 PM EDT Sexual Orientation Straight 11/11/2018 12 :00 PM EDT Last Filed Vital Signs Vital Sign Reading Time Taken Comments Blood Pressure - - Pulse - - Temperature - - Respiratory Rate - - Oxygen Saturation - - Inhaled Oxygen Concentration - - Weight 104.8 kg (231 lb) 12/02/2019 10:48 AM EDT Height 160 cm (5' 3 ) 12/02/2019 10:48 AM EDT Body Mass Index 40.92 12/02/2019 10:48 AM EDT Plan of Treatment Health Maintenance Due Date Last Done Comments Adult Td,Tdap Booster 1985 LIPID PANEL 1985 TSH LEVEL 1985 HEPATITIS C SCREENING 07/20/2003 HIV ONE-TIME SCREENING (18-6 5 YEARS) 07/20/2003 DEPRESSION SCREENING 08/03/2020 08/04/2019, 08/04/2019 INFLUENZA VACCINE (#1) 2024 COVID-19 VACCINE (2024-2 6 season) 2024 SMOKING STATUS SCREENING (On ce After 26 Yrs) Completed 09/12/2019 HEPATITIS A VACCINES Aged Out No long er eligible based on patient's age to complete this topic HIB VACCINES Aged Out No longer eligi ble based on patient's age to complete this topic MENINGOCOCCAL VACCINES (ACWY) Aged Out No longer eligible based on patient's age to complete this topic MENINGOCOCCAL VACCINES (B) Aged Out N o longer eligible based on patient's age to complete this topic PNEUMOCOCCAL VACCINES (0-49 years) Aged Out No longer eligible b ased on patient's age to complete this topic Medical Devices Not on file [place] [address] [place] [address] [employer] ACO [facility] [employer] PARTNERSHIP ACO Care Teams Corrugator Operator Helper Relationship Specialty Start Date End Date Noemy Levy NP PCP - General Family Medicine 11/11/18 Titi Perez MD [address] [place] [address] [place] [address] Insurance Assigned Provider Internal Medicine 10/25/19 Additional Source Comments The information contained in this document represents components of the legal health record. It is not the complete legal health record.[facility]
--- OUTSIDE RECORDS SUMMARY | 2025-01-23 09:48 | XMS_ITS | Encounter Summary ---
Author Organization [facility] Address [address] [place] [address] Care Team Providers Care Chinese Herbalist Name Role Phone Cam Noemy Quinton RADIOISOTOPE TECHNICIAN Primary Care Provider [phone] Encounter Details Date Type Department Care Team (Late st Contact Info) Description 02/05/2024 Lab Requisition [facility] - Main Lab [address] [facility] [place] [phone] Yogesh Juarez PA [address] [place] [phone] Benign essential microscopic hematuria Social History Tobacco Use Types Packs/Day Years Used Date Smoking Tobacco: Never Smokeless Tobacco: Never Alcohol Use Standard Drinks/Week Comments Not Currently 0 (1 standard drink = 0.6 oz pur e alcohol) Sex and Gender Information Value Date Recorded Sex Assigned at Not on file Legal Sex Male 6:15 AM EST Gender Identity Not on file Sexual Orientation Not on file documented as of this encounter Plan of Treatment Not on file documented as of this encounter Procedures Procedure Name Priority Date/Time Associated Diagnosis Comments AP OUTSIDE CONSULT Routine 01/28/2024 12 :00 AM EST Benign essential microscopic hematuria documented in this encounter Results * Anatomic pathology outside consult (01/28/2024 12:00 AM EST) Addendum Results of UroV[employer]ion fluorescence in situ hybridization (FISH) testing: CEP3: Normal CEP7: Normal CEP17: Normal LSI 9p21: Normal Interpretation: Normal profile Controls stained appropriately. Note: The results are intended as a screening device and should be interpreted in association with other clinical and pathological findings. 02/19/2024 10:55 AM [facility] Addendum electronically signed by Buffy Davis MD on 02/19/2024 at 1055 EST Final Diagnosis Urine, Voided: Negative for high grade urothelial carcinoma. Note: UroVysion testing to follow. 02/19/2024 10:55 AM [facility] at 1321 EST Clinical Information [id number] Urine cytology/urine FISH. 02/19/2024 10:55 AM [facility] Gross Description A. Urine, Voided, : [id number] RECD 1 TP CYTO 1 TP FISH. 02/19/2024 10:55 AM [facility] Disclaimer Unless otherwise specified, all tissue is 10% NB formalin fixed and paraffin embedded. Technical pathology services provided by [facility] at [address] [facility] [address], [place] [address] (CLIA #[id number]/Jennifer Lawrence MD, Mental Hygiene Consultant) 02/19/2024 10:55 AM [facility] Tissue Urine specimen from urethra / Unknown 01/28/2024 02/05/2024 8:12 AM EST us [facility] PATHOLOGY ORDERABLES Edite d Result - Final [facility] [address] [place] [address], documented in this encounter Visit Diagnoses Diagnosis Benign essential microscopic hematuria documented in this encounter Care Teams Chinese Herbalist Relationship Specialty Start Date End Date Noemy Levy NP [address] [place] [phone] PCP - General Nurse Practitioner 01/17/24 documented as of this encounter
--- OUTSIDE RECORDS SUMMARY | 2025-01-23 09:48 | XMS_ITS | Encounter Summary ---
Author Organization [facility] Address [address] [place] [address] Phone Care Team Providers Care Freight Coordinator Name Role Phone Noemy Levy NP Primary Care Provider + Titi Perez MD Unavailable [phone] Reason for Referral * Physical Therapy (Routine) - Closed Specialty Diagnoses / Procedures Referred By Ronna parnell Referred To Contact Physical Therapy Diagnoses Encounter for rehabilitation Kaye Grier MD [address] [facility] 4th [place] [address] Phone: tel: fax: [facility] [address] [place] [address] Phone: tel: Referral ID Status Reason Start Date Expiration Date Visits Re quested Visits Authorized [id number] Closed 10/13/2022 02/19/2024 25 25 Encounter Details Date Type Department Care Team (Latest Contact Info) Description 10/13/2022 Transcribe Orders [facility] [address] [place] [address] Kaye Grier MD [address] [place] [address] Encounter for rehabilitation (Primary Dx) Social History Tobacco Use Types Packs/Day Years [...] Orientation Straight 11/11/2018 12 :00 PM EDT documented as of this encounter Plan of Treatment Scheduled Referrals Name Type Priority Associated Diagnoses Orde r Schedule Ambulatory referral to [facility] Physical Therapy Outpatient Referral Routine Encounter for rehabilitation Ordered: 10/13/2022 documented as of this encounter Visit Diagnoses Diagnosis Encounter for rehabilitation- Primary documented in this encounter Care Teams Freight Coordinator Relationship Specialty Start Date End Date Noemy Levy NP PCP - General Family Medicine 11/11/18 Titi Perez MD [address] [place] [address] [place] [address] Insurance Assigned Provider Internal Medicine 10/25/19 documented as of this encounter Additional Source Comments The information contained in this document represents components of the legal health record. It is not the complete legal health record.[facility]
== END 2025-01-23 11:23 | disposition home or self-care (01) ==
LOC: HO.RHES 09:11
PROVIDERS: PCP Nurse Practitioner Family; Visit Provider Student in an Organized Health Care Education/Training Program
DX: M15.0 Primary generalized (osteo)arthritis (principal); R76.0 Raised antibody titer
CPT/HCPCS: 99215

== ENCOUNTER → 2025-01-23 09:10 | Outpatient (BNVA) | payer OTHER, SELFPAY | PROVIDERS: PCP Nurse Practitioner Family; Visit Provider Student in an Organized Health Care Education/Training Program | DX: M15.0 Primary generalized (osteo)arthritis (principal); R76.89 Other specified abnormal immunological findings in serum | CPT/HCPCS: 99212 ==